=== PATIENT | female | born 1960 | race Caucasian/White ===

== ENCOUNTER 2022-11-06 09:16 | Emergency (ER) | payer OTHER ==
[~2022-11-06] VITALS: Ht 160 cm; Wt 83.9 kg
[~2022-11-06 09:16] MED LIST: ALBU90OI; AZIT250 PO; BENZ100A PO; ESTROGEN; FLUSAL2505; NAPR500 PO; OMEP10ER
[2022-11-06 10:07] LABS: BASOPHILS ABSOLUTE AUTO 0.05 K/mm3 (0.00-0.23); BASOPHILS PERCENT AUTO 1 % (0-2); EOSINOPHILS ABSOLUTE AUTO 0.49 K/mm3 (0.00-0.68); EOSINOPHILS PERCENT AUTO 5 % (0-6); Hematocrit 33.2 % (33.0-51.0); Hemoglobin 10.9 g/dL (11.5-16.0); IMMATURE GRAN ABSOLUTE AUTO 0.07 K/mm3 (0.00-0.10); IMMATURE GRAN PERCENT AUTO 1 % (0-1); LYMPHOCYTES ABSOLUTE AUTO 2.03 K/mm3 (0.84-5.20); LYMPHOCYTES PERCENT AUTO 21 % (21-46); MONOCYTES ABSOLUTE AUTO 0.67 K/mm3 (0.16-1.47); MONOCYTES PERCENT AUTO 7 % (4-13); Mean Corpuscular HGB Conc 32.8 g/dL (31.5-36.5); Mean Corpuscular Volume 82 fL (80-100); NEUTROPHILS ABSOLUTE AUTO 6.24 K/mm3 (1.96-9.15); NEUTROPHILS PERCENT AUTO 65 % (41-73); Platelet Count 330 K/mm3 (150-400); RDW Coefficient Variation 16.8 % (11.7-14.2); RDW Standard Deviation 50.1 fL (35.1-46.3); Red Blood Cell Count 4.04 M/mm3 (3.80-5.20); White Blood Cell Count 9.55 K/mm3 (4.00-11.30)
[2022-11-06 10:33] LABS: Albumin, Blood 3.7 g/dL (3.4-5.0); Albumin/Globulin Ratio 1.2 (0.8-1.8); Bilirubin, Total 0.2 mg/dL (0.1-1.0); Bun/Creatinine Ratio 17.1 (12.0-20.0); Calcium, Blood 9.3 mg/dL (8.5-10.1); Creatinine, Blood 0.93 mg/dL (0.40-1.00); Globulin, Blood 3.1 g/dL (2.2-4.0); Potassium, Blood 4.3 mmol/L (3.5-5.5); Thyroid Stimulating Hormone 0.618 uIU/mL (0.360-4.800); Total Protein, Blood 6.8 g/dL (6.4-8.2)
[2022-11-06 10:58] VITALS: BP 120/70
== END 2022-11-06 10:59 | disposition home or self-care (01) ==
LOC: ER 09:16
PROVIDERS: Emergency Medicine
DX: G62.9 Polyneuropathy, unspecified (principal); Z79.899 Other long term (current) drug therapy; J45.909 Unspecified asthma, uncomplicated; M19.90 Unspecified osteoarthritis, unspecified site
CPT/HCPCS: 80053; 84443; 85025; 93005; 93010; 99285-25

== ENCOUNTER 2023-11-02 12:12 | Day surgery (SDC) | payer OTHER ==
[~2023-11-02] VITALS: Ht 160 cm; Wt 95.9 kg
[2023-11-02] VITALS (22 sets, daily range): BP systolic 115–177; BP diastolic 65–113
[~2023-11-02 12:12] MED LIST changes: +ALEN70 PO; +B-12500 MC2 PO; +BISA5EC PO; +BREYNA 160-4.10.3 GM INH; +BUSPIRONE HCL10 M3 PO; +CLOBETASOL EMOL15 G1; +DESV50 PO; +FERSU300 PO; +HYDHCL25 PO; +IPRAT-ALBUT 0.5-3 ML IH; +LISI5 PO; +LORA10ER PO; +MAGN84 PO; +METO25ER PO; +MONT10T PO; +SPIRIVA RESPIMAT4 G3 INH; +TRAM50 PO; +TRAZ50 PO; +VENLAFAXINE HC225 MG PO; +VITAMIN D5000 UNIT PO; +WIXELA 250-501 EAC1 IH; +[UNRECOGNIZED DRUG - OTHER] PO
[2023-11-02] MEDS ORDERED: Lactated Ringer's 1,000 ML IV SCH (12:35)
[2023-11-02] MEDS ORDERED: Albuterol 2.5 MG/3 ML VIAL INH ONE (12:35)
[2023-11-02] MEDS ORDERED: Lidocaine HCl 4% 5 ML SDA INH ONE (12:40)
[2023-11-02] MEDS ORDERED: Lidocaine 2% Jelly Uro-Jet ONE (12:41)
[2023-11-02] MEDS ORDERED: propofoL 20 ML IV ONE (12:42)
[2023-11-02] MEDS ORDERED: Lidocaine 2% 5 ML SDV ONE (12:42)
[2023-11-02] MEDS ORDERED: EpiNEPhrine 1 MG/1 ML 1ML Vial ONE (12:42)
[2023-11-02] MEDS ORDERED: FentaNYL Citrate 50 MCG/ML 2 ML Injection ONE (12:42)
[2023-11-02] MEDS ORDERED: AZAT50 PO (12:59)
[2023-11-02] MEDS ORDERED: Prednisone10 MG PO (13:00)
[2023-11-02] MEDS ORDERED: TIOT18 INH (13:01)
[2023-11-02] MEDS ORDERED: Crestor40 MG PO (13:01)
--- NOTE | 2023-11-02 13:23 | NUR ---
Ambulatory in Day Surgery. History, Chart, Medications and Allergies reviewed before start of procedure. Patient confirms NPO status and agrees with scheduled surgery. Pre-Op teaching done. Pt verbalizes understanding. Patient States Post-Procedure ride home has been arranged.
--- NOTE | 2023-11-02 14:03 | NUR ---
11/02/23 1403 Jossy Pappas HISTORY, CHART, MEDICATIONS AND ALLERGIES REVIEWED BEFORE START OF PROCEDURE. PATIENT CONFIRMS NPO STATUS AND AGREES WITH SCHEDULED PROCEDURE. 3-LEAD EKG REVIEWED WITH PHYSICIAN PRIOR TO START OF PROCEDURE. MONITOR INTACT WITH CONTINUOUS PULSE OXIMETRY,CAPNOGRAPHY, 3-LEAD EKG, INTERMITTENT BP. SUPPLEMENTAL O2 TO BE TITRATED THROUGHOUT PROCEDURE TO MAINTAIN O2 SATURATION ABOVE 90%. PATIENT DETERMINED TO BE ASA APPROPRIATE FOR PROPOFOL SEDATION PRIOR TO START OF PROCEDURE BY .MALLAMPATI CLASS 2 AIRWAY: COMPLETE VISUALIZATION OF THE UVULA.
--- NOTE | 2023-11-02 15:15 | NUR ---
PT VS [facility]. NO NOTED SOB. SATS>90% ON RA. REVIEWED DISCHARGE INSTRUCTIONS WITH PT. PT VERBALIZES UNDERSTANDING. DISCHARGED TO HOME, OUT VIA WHEELCHAIR WITH BELONGINGS AND DISCHARGE INSTRUCTIONS ON HAND.
== END 2023-11-02 15:15 | disposition home or self-care (01) ==
LOC: ORSCMMR 12:12 → ORD 14:00 → ORSCMMR 15:15
PROVIDERS: Student in an Organized Health Care Education/Training Program
PROC: 0B9J8ZX Drainage of Left Lower Lung Lobe, Via Natural or Artificial Opening Endoscopic, Diagnostic (ICD-10-PCS; principal; 2023-11-02 14:00)
PROC: 0B9D8ZX Drainage of Right Middle Lung Lobe, Via Natural or Artificial Opening Endoscopic, Diagnostic (ICD-10-PCS; principal; 2023-11-02 14:00)
DX: J67.9 Hypersensitivity pneumonitis due to unspecified organic dust (principal); J84.9 Interstitial pulmonary disease, unspecified; Z86.16 Personal history of COVID-19; G47.33 Obstructive sleep apnea (adult) (pediatric); Z79.899 Other long term (current) drug therapy; Z68.37 Body mass index [BMI] 37.0-37.9, adult
CPT/HCPCS: 87070; 87071; 87102; 87116; 87205; 88108; 88312; J0171; J2001; J2704; J3010; J7120